=== PATIENT | female | born 2005 | race Caucasian/White ===

== ENCOUNTER 2023-01-22 13:08 | Outpatient (OUT) | payer BC, SELFPAY ==
--- NOTE | 2023-01-22 13:11 | CT_ITS ---
[address] [address] Patient Name: CRUZ PEREZ MRN: [id number] date: 2005 Sex: F Assigned Patient Location: CT Current Patient Location: CT Accession/Order Number: [id number] Exam Date: 01/22/2023 15:05 Report Date: 01/22/2023 17:36 At the request of: RAZIA BLANTON Procedure: CT abdomen pelvis wo/w con EXAMINATION: CT abdomen pelvis wo/w con HISTORY: Hirsutism I68.0, Irregular Menstruation N92.6 COMPARISON: No relevant comparison available. TECHNIQUE: Axial, Coronal, and Sagittal images were created without and with non-ionic intravenous contrast material. Dose reduction techniques were achieved by using automated exposure control and/or adjustment of mA and/or kV according to patient size and/or use of iterative reconstruction technique. FINDINGS: LUNG BASES: No visible pulmonary or pleural disease. LIVER: Diffuse hypoattenuation consistent with hepatic steatosis BILIARY: No dilatation or calcification. PANCREAS: No lesion, fluid collection, ductal dilatation, or atrophy. SPLEEN: No enlargement or focal lesion. ADRENALS: No mass or enlargement. KIDNEYS: No mass, obstruction, or calcification. BOWEL/MESENTERY: No visible mass, obstruction, or bowel wall thickening. AORTA/VASCULAR: No aneurysm or dissection. RETROPERITONEUM: No mass or adenopathy. LYMPH NODES: No adenopathy. URINARY BLADDER: No visible focal wall thickening, lesion, or calculus. PELVIC ORGANS: No visible mass. Pelvic organs appropriate for patient age. ABDOMINAL WALL: No mass or hernia. BONES: No bony lesion or fracture. OTHER: Negative. IMPRESSION: Hepatic steatosis No acute intraperitoneal abnormality No focal adrenal mass Electronically authenticated by: SARAH JONAS Date: 01/22/2023 17:36
== END 2023-01-22 13:09 ==
PROVIDERS: PCP Family Medicine; Visit Provider Internal Medicine
DX: L68.0 Hirsutism (principal); N92.6 Irregular menstruation, unspecified; E28.2 Polycystic ovarian syndrome; E66.9 Obesity, unspecified; I68.0 Cerebral amyloid angiopathy; K76.0 Fatty (change of) liver, not elsewhere classified
CPT/HCPCS: 74178; Q9967

== ENCOUNTER 2025-03-26 16:28 | Outpatient (OUT) | payer BC, SELFPAY ==
--- OUTSIDE RECORDS SUMMARY | 2025-03-26 16:33 | XMS_ITS | Clinical Summary ---
Author Organization [facility] Healthcare Address [address] [place] [address] Care Team Providers Care Underwear Finisher Name Role Phone Deja Grant MD Primary Care Provider [phone] Allergies No known active allergies Medications drospirenone-et hinyl estradiol (Disha Romero) 3-0.02 MG tablet Take 1 tablet by mouth Daily Active metFORMIN (Glucophage) 1000 MG tablet Take 1 tablet by mouth in the morning and 1 tablet in the evening. Take with meals. Active spironolactone (Aldactone) 100 MG tabletIndicatio ns:Polycystic ovarian syndrome TAKE 1 TABLET BY MOUTH TWICE A DAY 180 tablet 1 09/04/2024 Active Immunizations Immunization Administration Dates Next Due DTaP 04/28/2005,03/25/2004,2003 DTaP, 5 pertussis antigens 10/25/2008 Hib / Hep B 04/28/2005,03/25/2004,2003 IPV 10/25/2008,04/28/2005,03/25/2004 ,2003 MMR 04/19/2009,04/28/2005 Meningococcal MCV4O 03/20/2021 Meningococcal MCV4P 03/24/2016 Tdap 03/24/2016 Varicella 04/28/2005 Family History Relation Name Status Comments Mother Alive Social History Tobacco Use Types Packs/Day Years Used Date Smoking Tobacco: Never Smokeless Tobacco: Never Tobacco Cessation:Counseling Given: Not Answered Comments Unknown Sex and Gender Information Value Date Recorded Sex Assigned at Not on file Legal Sex Female 7:18 PM EDT Gender Identity Not on file Sexual Orientation Not on file Last Filed Vital Signs Vital Sign Reading Time Taken Comments Blood Pressure 130/84 09/26/2024 1:53 PM EST Pulse 88 09/26/2024 1:53 PM EST Temperature - - Respiratory Rate 18 09/26/2024 1:53 PM EST Oxygen Saturation 97% 09/26/2024 1:53 PM EST Inhaled Oxygen Concentration - - Weight 103 kg (228 lb) 09/26/2024 1:53 PM EST Height 166.4 cm (5' 5.5 ) 09/26/2024 1:53 PM EST Body Mass Index 37.36 09/26/2024 1:53 PM EST Plan of Treatment Upcoming Encounters Date Type Department Care Team (Late st Contact Info) Description 03/27/2025 2:00 PM EDT Office Visit [facility] [address] [place] [id number] Jamie Estes MD [address] [place] [address] Health Maintenance Due Date Last Done Comments Influenza Vaccine (#1) 2025 Insurance [facility] Care Teams Underwear Finisher Relationship Specialty Start Date End Date Deja Grant MD [address] [place] [address] PCP - General Family Medicine 12/15/22
--- OUTSIDE RECORDS SUMMARY | 2025-03-26 16:34 | XMS_ITS | Clinical Summary ---
Author Organization [facility] Address [address], [address] [place] [address] Care Team Providers Care Operation Supervisor Name Role Phone Deja Bruce MD Primary Care Pr ovid Allergies No known active allergies Medications polyethylene glycol (GLYCOLAX) powder Take 17 g by mouth daily. 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 Family History Medical History Relation Name Comments Diabetes Other Relation Name Status Comments Other Social History Tobacco Use Types Packs/Day Years Used Date Smoking Tobacco: Passive Smo ke Exposure - Never Smoker Alcohol Use Standard Drinks/Week Comments Not Asked 0 (1 standard drink = 0.6 oz pur e alcohol) Comments Unknown Sex and Gender Information Value Date Recorded Sex Assigned at Not on file Legal Sex Female 9:04 PM EST Gender Identity Not on file Sexual Orientation Not on file Last Filed Vital Signs Vital Sign Reading Time Taken Comments Blood Pressure 112/66 11/24/2011 11:30 AM EDT Pulse 90 11/24/2011 11:30 AM EDT Temperature 36.6 C (97.9 F) 07/23/2011 1:14 PM EST Respiratory Rate - - Oxygen Saturation - - Inhaled Oxygen Concentration - - Weight 34.5 kg (76 lb) 11/24/2011 11:30 AM EDT Height 132.1 cm (4' 4 ) 11/24/2011 11:30 AM EDT Body Mass Index 19.76 11/24/2011 11:30 AM EDT Plan of Treatment Not on file Care Teams Operation Supervisor Relationship Specialty Start Date End Date Deja Bruce MD [facility] - General 07/23/11
[2025-03-26 17:21] LABS: Anion Gap 14.1; Blood Urea Nitrogen 10.0 mg/dL (7.0-18.0); Calcium 8.6 mg/dL (8.5-10.1); Carbon Dioxide 23.1 mmol/L (21.0-32.0); Chloride 106 mmol/L (98-107); Estimated GFR (African America >60 (>=60 mL/min/1.73m^2); Estimated GFR (Non-African Ame >60 (>=60 mL/min/1.73m^2); Glucose 148 mg/dL (74-106); Potassium 4.2 mmol/L (3.5-5.1); Sodium 139 mmol/L (136-145)
== END 2025-03-26 16:29 | disposition home or self-care (01) ==
PROVIDERS: PCP Family Medicine; Visit Provider Internal Medicine
DX: L68.0 Hirsutism (principal)
CPT/HCPCS: 36415; 80048; 82157; 82627; 83498; 84403